=== PATIENT | female | born 1975 | race Caucasian/White ===

== ENCOUNTER 2020-01-22 10:18 | Emergency (ER) | payer OTHER, SELFPAY ==
--- NOTE | ~2020-01-22 | XR_ITS ---
XR chest 2V DATE: 01/22/2020 11:25 INDICATION: Shortness of breath, productive cough for 2 weeks, fever TECHNIQUE: PA and lateral views COMPARISON: 05/29/2016 two-view chest; only the lateral view is available FINDINGS: Normal heart size. No hilar or mediastinal enlargement. Lungs are hyperinflated but clear o f infiltrate or consolidation. Bulla or less likely azygos lobe, right apical area. No pleural effusion or pulmonary vascular congestion or pneumothorax. Posterior fusion spinal hardware is partially included in the lowermost aspect of the views. IMPRESSION: Bilateral hyperinflation; no active cardiopulmonary disease Reviewed, dictated and finalized at location A.
[2020-01-22 10:40] VITALS: BP 127/56; PULSE 88; RESP 16; TEMP 36.7; O2SAT 96
[2020-01-22] MEDS: methylPREDNISolone SOD SUCC 125 MG VIAL IV PUSH (10:56)
[2020-01-22] MEDS: IPRATROPIUM 0.5 MG/ALBUTEROL SULFATE 2.5 MG AMPUL.NEB 3 ML INHALATION (10:57)
[2020-01-22 10:58] VITALS: PULSE 85; RESP 16
[2020-01-22 11:05] VITALS: PULSE 88; RESP 16
[2020-01-22 11:15] LABS: Hematocrit 38.3 % (35.0-49.0); Hemoglobin 12.8 g/dL (12.0-15.0); Mean Corpuscular HGB Conc 33.4 g/dL (32.0-36.0); Mean Corpuscular Hemoglobin 32.7 pg (27.0-31.0); Mean Platelet Volume 9.3 fl (9.2-11.8); Platelet Count Result 175 K/mm3 (150-420); Red Blood Count 3.91 M/mm3 (4.20-5.40); Red Cell Distribution Width 12.3 % (11.6-14.4); White Blood Count 3.8 K/mm3 (4.8-10.8)
[2020-01-22 11:29] LABS: Alanine Aminotransferase 20 U/L (14-59); Albumin Level 3.6 g/dL (3.4-5.0); Alkaline Phosphatase 38 U/L (46-116); Anion Gap 6 mmol/L (8-16); Aspartate Amino Transferase 14 U/L (15-37); Bilirubin,Total 0.2 mg/dL (0.00-1.00); Blood Urea Nitrogen 4 mg/dL (7-18); Calcium 8.3 mg/dL (8.5-10.1); Carbon Dioxide 29 mmol/L (21-32); Chloride 99 mmol/L (98-108); Estimated Glomerular Filt Rate > 60; Glucose 91 mg/dL (70-99); Osmolality Calculated 274 mOsm/kg (285-295); Potassium 3.9 mmol/L (3.5-5.1); Sodium 134 mmol/L (136-145); Total Protein 6.4 g/dL (6.4-8.2)
[2020-01-22 11:54] LABS: Band Neutrophils Percent 0 % (0-6); Lymphocytes Absolute Manual 1.67 K/mm3 (1.1-4.5); Lymphocytes Percent Manual 44 % (18-44); Monocytes Percent Manual 8 % (3-9); Neutrophils Absolute Manual 1.82 K/mm3 (1.7-7.2); Neutrophils Percent Manual 48 % (46-73); Platelet Estimate Adequate (Adequate); Total Cells Counted 100
--- NOTE | 2020-01-22 11:57 | ED.URI ---
HPI - URI/Sore Throat General Chief Complaint: Upper Respiratory Infection Stated Complaint: fever,dizzy, headache,Cough Source: patient Mode of arrival: ambulatory Limitations: no limitations History of Present Illness HPI Narrative: This is a 44-year-old female with history of COPD and positive tobacco use, presents with increased shortness of breath or cough that is productive of clear sputum with some currently no fever her temperature is some 98.2, and O2 saturations of 96%. States that over the last couple of days has had increased shortness of breath with a cough and temperature at home of 102 currently her temp is within normal range. Currently there is no chest pain or pressure no abdominal pain. MD elicited complaint: fever and cough Pertinent past history: COPD Onset (ago): day(s) Consistency: constant Severity: mild Description of mucous: clear Able to tolerate fluids by mouth: Yes Exacerbating factors: nothing Relieving factors: nothing Related Data Home Medications Medication Instructions Recorded Confirmed albuterol sulfate 1 inh INHALATION QID PRN 01/22/20 01/22/20 cetirizine 10 mg PO DAILY 01/22/20 01/22/20 gabapentin 300 mg PO TID 01/22/20 01/22/20 ibuprofen 800 mg PO TID 01/22/20 01/22/20 prednisone 10 mg PO DAILY 01/22/20 01/22/20 Allergies Allergy/AdvReac Type Severity Reaction Status Date / Time acetaminophen Allergy Itching Verified 01/22/20 10:42 [From Darvocet-N] meperidine [From Demerol] Allergy Itching Verified 01/22/20 10:42 propoxyphene Allergy Itching Verified 01/22/20 10:42 [From Darvocet-N] Review of Systems Review of Systems: All systems reviewed & are unremarkable except as noted in HPI and below PMFSH Past Medical History Medical History COPD (chronic obstructive pulmonary disease) Tobacco abuse Exam Const: General: no acute distress and alert Orientation/consciousness: patient oriented x3 HENMT: Head: normal to inspection Ears: TM abnormal Eyes: Conjunctivae: conjunctivae normal Pupils: Equal, round and reactive pupils present Neck: Neck: normal visual inspection, no lymphadenopathy and no meningeal signs Chest: Chest palpation & inspection: normal inspection of the chest Resp: Effort & Inspection: normal respiratory effort Auscultation: wheezes Cardio: Rate: regular rate Rhythm: regular rhythm GI: GI Palp: Yes Soft to palpation Back/Spine/Pelvis: Back: no CVA tenderness Skin: General skin exam: normal color Rashes: no rashes Psych: Appearance: grossly normal Mental Status: mental status grossly normal Affect: normal affect Thought content: Yes Normal thought content present Course Course Emergency Course: reassessment of patient's wheezing has improved patient feels much better and advised that will give a dose of ceftriaxone and treated as an outpatient with follow-up with her primary care doctor. Vital Signs Vital signs: Vital Signs Temperature 36.7 C 01/22/20 10:40 Pulse Rate 88 01/22/20 10:40 Respiratory Rate 16 01/22/20 10:40 Blood Pressure 127/56 L 01/22/20 10:40 Pulse Oximetry 96 01/22/20 10:40 Temperature 36.7 C 01/22/20 10:40 Pulse Rate 88 01/22/20 11:05 Respiratory Rate 16 01/22/20 11:05 Blood Pressure 127/56 L 01/22/20 10:40 Pulse Oximetry 96 01/22/20 10:40 MDM - URI/Sore Throat Lab Data Result diagrams: 01/22/20 11:06 01/22/20 11:06 Labs: Lab Results 01/22/20 01/22/20 Range/Units 11:06 11:06 WBC 3.8 L (4.8-10.8) K/mm3 RBC 3.91 L (4.20-5.40) M/mm3 Hgb 12.8 (12.0-15.0) g/dL Hct 38.3 (35.0-49.0) % MCV 98.0 (78.0-102.0) fL MCH 32.7 H (27.0-31.0) pg MCHC 33.4 (32.0-36.0) g/dL RDW 12.3 (11.6-14.4) % Plt Count 175 (150-420) K/mm3 MPV 9.3 (9.2-11.8) fl Immature Gran % (Auto) Not Reportable Neut % (Auto) Not Reportable Lymph % (Auto) Not Rep
[2020-01-22 12:14] VITALS: RESP 17
== END 2020-01-22 12:15 | disposition home or self-care (01) ==
PROVIDERS: Emergency Provider Emergency Medicine; PCP Physician Assistant
DX: J44.9 Chronic obstructive pulmonary disease, unspecified (principal); J06.9 Acute upper respiratory infection, unspecified; Z87.891 Personal history of nicotine dependence
CPT/HCPCS: 36415; 71046; 80053; 85025; 87040; 94640; 96374; 96375; 99283; 99284; J0696; J2930

== ENCOUNTER 2020-04-01 08:37 | Outpatient (CLI) | payer OTHER, SELFPAY ==
[2020-04-01 08:55] LABS: Basophils Absolute Auto 0.06 K/mm3 (0.00-0.10); Basophils Percent Auto 0.9 % (0.0-1.0); Eosinophils Absolute Auto 0.08 K/mm3 (0.02-0.50); Eosinophils Percent Auto 1.1 % (1.0-6.0); Hematocrit 39.3 % (35.0-49.0); Hemoglobin 12.9 g/dL (12.0-15.0); Immature Granulocyte Absolute 0.01 K/mm3 (0.00-0.00); Immature Granulocyte Percent A 0.1 % (0.0-0.0); Lymphocytes Absolute Auto 2.51 K/mm3 (1.10-4.50); Lymphocytes Percent Auto 35.9 % (18.0-42.0); Mean Corpuscular HGB Conc 32.8 g/dL (32.0-36.0); Mean Corpuscular Volume 100.5 fL (78.0-102.0); Mean Platelet Volume 8.8 fl (9.2-11.8); Monocytes Absolute Auto 0.33 K/mm3 (0.10-0.90); Monocytes Percent Auto 4.7 % (2.0-11.0); Neutrophils Percent Auto 57.3 % (50.0-70.0); Platelet Count Result 329 K/mm3 (150-420); Red Blood Count 3.91 M/mm3 (4.20-5.40); Red Cell Distribution Width 12.6 % (11.6-14.4)
[2020-04-01 10:09] LABS: Alanine Aminotransferase 26 U/L (14-59); Albumin Level 4.1 g/dL (3.4-5.0); Alkaline Phosphatase 36 U/L (46-116); Anion Gap 7 mmol/L (8-16); Aspartate Amino Transferase 13 U/L (15-37); Bilirubin,Total 0.4 mg/dL (0.00-1.00); Blood Urea Nitrogen 5 mg/dL (7-18); Calcium 8.8 mg/dL (8.5-10.1); Carbon Dioxide 26 mmol/L (21-32); Chloride 101 mmol/L (98-108); Cholesterol 157 mg/dL (0-200); Estimated Glomerular Filt Rate > 60; Ferritin 73 ng/mL (8-252); Free T4 Free Thyroxine 0.97 ng/dL (0.76-1.46); Glucose 96 mg/dL (70-99); HDL Direct 55 mg/dL (40-60); Iron 102 ug/dL (50-170); LDL Cholesterol Calculated 90 mg/dL (<130); Osmolality Calculated 275 mOsm/kg (285-295); Percent Iron Saturation 35 % (12-57); Potassium 4.3 mmol/L (3.5-5.1); Sodium 134 mmol/L (136-145); Thyroid Stimulating Hormone 1.59 uIU/mL (0.36-3.74); Total Protein 6.9 g/dL (6.4-8.2); Triglycerides 59 mg/dL (0-150)
== END 2020-04-01 08:38 | disposition home or self-care (01) ==
LOC: CHSLAB 08:39
PROVIDERS: PCP Physician Assistant; Visit Provider Internal Medicine Cardiovascular Disease
DX: R53.81 Other malaise (principal); J98.4 Other disorders of lung; R29.6 Repeated falls; R53.83 Other fatigue; R07.89 Other chest pain; F17.200 Nicotine dependence, unspecified, uncomplicated; K21.9 Gastro-esophageal reflux disease without esophagitis; F31.9 Bipolar disorder, unspecified
CPT/HCPCS: 36415; 80053; 80061; 82728; 83540; 83550; 84439; 84443; 84480; 85025

== ENCOUNTER 2020-06-04 13:48 | Outpatient (CLI) | payer OTHER, SELFPAY ==
--- NOTE | ~2020-06-04 | XR_ITS ---
XR lumbar spine 2-3V DATE: 06/04/2020 14:05 INDICATION: Left leg chronic numbness and pain TECHNIQUE: AP, lateral and coned lateral lumbosacral views COMPARISON: 07/04/2018 lumbar spine FINDINGS: Status post bilateral posterior and interbody spinal fusion at L5-S1. There is grade 1 ante rolisthesis at L5-S1, stable or mildly improved compared to 07/04/2018. No fracture or bone destruction is evident. The included lower thoracic and lumbar pedicles appear in tact. Normal alignment at the sacroiliac joints. Surgical clips are again noted overlying the pelvis. IMPRESSION: Status post posterior and interbody spinal fusion at L5-S1 Grade 1 anterolisthesis at L5-S1, stable or mildly improved since 07/04/2018 Reviewed, dictated and finalized at location B. ON PI[employer] EXAMINER
== END 2020-06-04 13:49 | disposition home or self-care (01) ==
LOC: CHSIMG 13:50
PROVIDERS: PCP Physician Assistant; Visit Provider Physician Assistant
DX: M54.16 Radiculopathy, lumbar region (principal)
CPT/HCPCS: 72100

== ENCOUNTER 2020-06-30 06:58 | Outpatient (CLI) | payer OTHER, SELFPAY ==
--- NOTE | ~2020-06-30 | MR_ITS ---
EXAMINATION: MR lumbar spine wo con EXAM DATE: 06/30/2020 08:46 INDICATION: Lumbar radiculopathy, low back and left leg pain. TECHNIQUE: Multi-sequential, multiplanar MR images of the lumbar spine were obtained without contrast . Sagittal T1, T2, T2 fat saturation images. Axial T2 weighted images. There is no prior study for comparison. FINDINGS: Fused L5-S1 with posterior hardware artifact, interbody device. Probable laminotomies at L5 . There is 7 mm anterolisthesis at that level. The vertebral bodies are otherwise aligned. Vertebral body and disc heights are well-maintained. There are no suspicious marrow signal abnormalities. The c onus medullaris terminates at the T12-L1 level and has normal signal intensity and morphology. Level by level evaluation: T12-L1: Disc does not extend beyond the endplate margin. Facet arthropathy: Mild. Neural foraminal stenosis: No stenosis. Central canal stenosis: No stenosis. L1-L2: Disc does not extend beyond the endplate margin. Facet arthropathy: Mild. Neural foraminal stenosis: No stenosis. Central canal stenosis: No stenosis. L2-L3: Disc does not extend beyond the endplate margin. Facet arthropathy: Mild. Neural foraminal stenosis: No stenosis. Central canal stenosis: No stenosis. L3-L4: Disc does not extend beyond the endplate margin. Facet arthropathy: Mild. Neural foraminal stenosis: No stenosis. Central canal stenosis: No stenosis. L4-L5: There is a mild diffuse disc bulge. Facet arthropathy: Mild. Neural foraminal stenosis: Mild bilateral. Central canal stenosis: Mild. L5-S1: This level is fused. Facet arthropathy: Poorly visualized. Neural foraminal stenosis: Mild right. Central canal stenosis: No stenosis. IMPRESSION: 1. L5-S1 fusion. 2. Mild lumbar facet arthropathy. Reviewed, dictated and finalized at location A.
== END 2020-06-30 06:59 | disposition home or self-care (01) ==
LOC: CHSIMG 07:01
PROVIDERS: PCP Physician Assistant
DX: M54.16 Radiculopathy, lumbar region (principal); R20.0 Anesthesia of skin
CPT/HCPCS: 72148

== ENCOUNTER 2020-07-13 17:06 | Outpatient (CLI) | payer OTHER, SELFPAY ==
[2020-07-13 18:17] LABS: Alanine Aminotransferase 29 U/L (14-59); Alkaline Phosphatase 43 U/L (46-116); Aspartate Amino Transferase 14 U/L (15-37); Bilirubin Direct 0.1 mg/dL (0-0.2); Bilirubin,Total 0.4 mg/dL (0.00-1.00); Cholesterol 171 mg/dL (0-200); HDL Direct 59 mg/dL (40-60); LDL Cholesterol Calculated 100 mg/dL (<130); Total Protein 6.9 g/dL (6.4-8.2); Triglycerides 60 mg/dL (0-150)
== END 2020-07-13 17:07 | disposition home or self-care (01) ==
LOC: CHSLAB 17:10
PROVIDERS: PCP Physician Assistant
DX: I10 Essential (primary) hypertension (principal)
CPT/HCPCS: 36415; 80061; 80076; 84443

== ENCOUNTER 2020-12-28 14:28 | Outpatient (CLI) | payer OTHER, SELFPAY ==
[2020-12-28 15:39] LABS: SARS-CoV-2 RNA PCR Positive (Negative)
== END 2020-12-28 14:29 | disposition home or self-care (01) ==
LOC: CHSLAB 14:29
PROVIDERS: PCP Physician Assistant; Visit Provider Physician Assistant
DX: U07.1 COVID-19 (principal)
CPT/HCPCS: C9803; U0003; U0005